=== PATIENT | male | born 1945 | race Caucasian/White ===

== ENCOUNTER → 2016-08-23 | Outpatient (CLI) | payer MEDICARE, OTHER ==
[~2016-08-23] MED LIST: ALEVE220 MG PO; LIPITOR20 M1 PO
[2016-08-23 11:20] LABS: ALBUMIN 4.2 gm/dL (3.5-5.0); ALK PHOS 90 IU/L (33-138); ALT 30 IU/L (12-78); ANION GAP 7.6 (10.0-19.0); AST 19 IU/L (10-40); BLOOD UREA NITROGEN 15 mg/dL (6-24); CALCIUM 8.7 mg/dL (8.5-10.5); CHLORIDE 106 mMol/L (96-110); CO2 32 mMol/L (22-32); ESTIMATED GFR (MDRD EQUATION) > 60; POTASSIUM 4.6 mMol/L (3.7-5.1); SODIUM 141 mMol/L (135-145); TOTAL BILIRUBIN 0.8 mg/dL (0.0-1.5); TOTAL PROTEIN 7.7 g/dL (6.0-8.4)
== END | disposition disaster alternative care site (69) ==
LOC: LNHI 11:03
PROVIDERS: Internal Medicine Interventional Cardiology
DX: E78.5 Hyperlipidemia, unspecified (principal); R07.9 Chest pain, unspecified

== ENCOUNTER → 2016-10-04 | Day surgery (SDC) | payer MEDICARE, OTHER ==
[~2016-10-04] VITALS: Ht 177.8 cm; Wt 64.4 kg
== END | disposition disaster alternative care site (69) ==
LOC: GPOC 09-28 11:00 → GEND 06:57 → GPOC 07:00
PROC: 0DB68ZX Excision of Stomach, Via Natural or Artificial Opening Endoscopic, Diagnostic (ICD-10-PCS; principal; 2016-10-04)
PROC: 0DBN8ZZ Excision of Sigmoid Colon, Via Natural or Artificial Opening Endoscopic (ICD-10-PCS; 2016-10-04)
PROC: 3E0H8GC Introduction of Other Therapeutic Substance into Lower GI, Via Natural or Artificial Opening Endoscopic (ICD-10-PCS; 2016-10-04)
DX: Z12.11 Encounter for screening for malignant neoplasm of colon (principal); C18.7 Malignant neoplasm of sigmoid colon; K29.70 Gastritis, unspecified, without bleeding; K57.30 Diverticulosis of large intestine without perforation or abscess without bleeding; E78.5 Hyperlipidemia, unspecified
CPT/HCPCS: J0171; J7030

== ENCOUNTER → 2016-10-07 | Outpatient (CLI) | payer MEDICARE, OTHER | END | disposition disaster alternative care site (69) | LOC: GLAB 13:33 | DX: C18.7 Malignant neoplasm of sigmoid colon (principal); R10.9 Unspecified abdominal pain; R63.0 Anorexia | CPT/HCPCS: Q9967 ==

== ENCOUNTER 2016-10-18 11:00 | Inpatient (IN) | payer MEDICARE, OTHER ==
[~2016-10-18] VITALS: Ht 177.8 cm; Wt 60.6 kg
--- NOTE | ~2016-10-18 | DS ---
PATIENT'S NAME: CHRISTIANO GARRISON [facility] AGE: 71 Y [address] ROOM: [place] [address] [place] [facility] [place]: 10/25/2016 Discharge Summary DISCHARGE DATE: 10/28/2016 FAMILY PHYSICIAN: Karolina Arzate MD ATTENDING PHYSICIAN: Matthew Enrique DISCHARGE DIAGNOSIS: Adenocarcinoma of the sigmoid colon. PROCEDURE PERFORMED: Laparoscopic sigmoid colon resection. HOSPITAL COURSE: Summary: Christiano Garrison is a 71-year-old gentleman who recently underwent a colonoscopy, where a large polyp was found in the sigmoid colon. This was removed and biopsy showed invasive adenocarcinoma. The area was tattooed and clips have been placed. A CT of the chest, abdomen, and pelvis showed no evidence of metastatic disease. The patient was seen by Dr. Enrique on 10/12/2016 for consultation and recommendations for a sigmoid colon resection were made. The risks, benefits, and alternatives were discussed. The patient underwent a mechanical and antibiotic bowel prep and was admitted to [facility] on 10/25/2016. The patient received preoperative antibiotics. The patient was taken to the operating room for a laparoscopic sigmoid colon resection. Please see Dr. Enrique's procedure note for specifics. Postoperatively, the patient was allowed activity as tolerated. Urine output was monitored closely. Ladd was placed to dependent drainage and removed the following morning. Pulmonary toiletry was encouraged. The patient was allowed sips of clear liquids. Lovenox was ordered for DVT prophylaxis. Ofirmev and Dilaudid were ordered for pain control. On postoperative day 1, the patient was doing very well. He had minimal pain. He had no nausea and no flatus. Vital signs were stable. Hemoglobin was 12.2. He was advanced to a clear liquid diet and allowed full liquids later in the day. His IV was heparin locked. On postoperative day 2, the patient was passing some gas. Vital signs remained stable. He continued on full liquids. Lovenox was held due to some bloody stools. On postoperative day 3, continued to do well but was bloated. He has had a bowel movement and some flatus. Diet was allowed as tolerated. Later in the day, the patient was feeling better with less bloating. He did not have a big appetite, but felt that he would do fine at home and requested to go home. DISCHARGE INSTRUCTIONS: Include: No restrictions on diet. No heavy lifting for 6 weeks. He will follow up with Dr. Enrique in 2 weeks. He is opted to use Tylenol or ibuprofen for pain as the [place] caused lightheadedness. Final pathology report is pending at this time. We will plan to review that in the clinic at his followup appointment. For specifics on day-to-day care, please refer to the hospital chart. PATIENT'S NAME: CHRISTIANO GARRISON [facility] AGE: 71 Y [address] ROOM: [place] [address] [place] [facility]: 10/25/2016 Discharge Summary DISCHARGE DATE: 10/28/2016 FAMILY PHYSICIAN: Karolina Arzate MD ATTENDING PHYSICIAN: Matthew Enrique RICHY RENNER PA-C FOR MD FELY AMADORK/marshal /[id number] d: 10/29/16 1417 t: 11/03/16 1125, DISCHARGE SUMMARY
--- NOTE | ~2016-10-18 | OR ---
PATIENT'S NAME: ELSI GARRISON [facility] AGE: 71 Y [address] ROOM: [address] [address] [place] [facility] [place]: 10[place]25[place] OR/Procedure Report DISCHARGE DATE: FAMILY PHYSICIAN: MILLY BROOKS MD ATTENDING PHYSICIAN: Matthew Enrique SURGEON: Matthew Enrique MD GOLF COURSE ARCHITECT: Jennifer Mckenna PA-C. DATE OF PROCEDURE: 10/25/2016 PREOPERATIVE DIAGNOSIS: Colonic adenocarcinoma. POSTOPERATIVE DIAGNOSIS: Colonic adenocarcinoma. PROCEDURE: Laparoscopic sigmoid. FINDINGS: The tattoo was relatively faint, but was identified within the sigmoid colon. There was scarring from his previous polypectomy site. ESTIMATED BLOOD LOSS: 50 mL. COMPLICATIONS: None. INDICATIONS: The patient is a 71-year-old male who had had a polyp removed, which revealed adenocarcinoma. We discussed with him resection versus observation. The risks, benefits, and alternatives of each and ultimately wished to proceed with surgery. DESCRIPTION OF PROCEDURE: The patient was taken into the operating room, placed supine, given IV sedation, subsequently intubated. His abdomen was prepped with ChloraPrep and sterilely draped. Local anesthetic was infiltrated just inferior to the umbilicus. A transverse incision was created. The abdomen was elevated. A Veress needle was inserted. Pneumoperitoneum was induced. Following this, a 5-mm trocar was inserted followed by insertion of the camera. There was no injury from initial trocar placement. Two more trocars were positioned, a 5 and a 12-mm right abdominal trocar ports, these were both inserted under direct visualization. The sigmoid colon was examined. Initially, we had some difficulty identifying the tattoo, however, we eventually were able to find, this area of tattoo was relatively faint, however. We examined the colon up to the hepatic flexure and we were unable to visualize any further tattoo. We elevated the mesentery in a medial to lateral plane, we divided the inferior mesenteric vessel at its base and continued dissection in a medial to lateral fashion. The ureter was able to be identified. We dissected then down towards the pelvis scoring the peritoneum. Sacral promontory was identified and dissected down to the sacral promontory. We then excised the line of Toldt in order to further mobilize PATIENT'S NAME: ELSI GARRISON [facility] AGE: 71 Y [address] ROOM: [address] [address] [place] [facility] [place]: 10/25/2016 OR/Procedure Report DISCHARGE DATE: FAMILY PHYSICIAN: MILLY BROOKS MD ATTENDING PHYSICIAN: Matthew Enrique the bowel and the bowel was mobilized from the descending colon down into the pelvis. The area of tattoo again was relatively faint, but no other further tattoo was able to be visualized. Once adequately mobilized, a laparoscopic stapler was placed across the rectum and fired, and a second staple load had to be used to complete this transection. Once this was removed, the pneumoperitoneum was released. A Pfannenstiel incision was created. The abdominal cavity was entered. A wound VAC was then placed. The sigmoid colon was then delivered up to the wound. The mesentery had been divided proximally. The specimen was delivered through. The proximal site of resection had been selected. A pursestring clamp was then placed followed by a [place]. The bowel was then divided and passed off the table. We examined this on the back table. Again, there was minimal polyp present, and the tattoo was quite light; however, there was significant scarring right near this area of tattoo, consistent with previous polypectomy. Once we examined the specimen on the back table, we felt we were able to proceed with anastomosis. The pursestring suture clamp was opened and a 29 EEA anvil was inserted into the descending colon. The pursestring suture was secured, this allowed to fall back into the abdominal cavity. The Yoseph wound protector was removed. The peritoneum was closed with 2-0 Vicryl suture and closure of the anterior rectus sheath fascia with 0 PDS suture. Following this, CO2 was reintroduced in the abdominal cavity. We were able to place the EEA stapler into the rectum and advanced this up to the rectum. The spike was brought out through the rectum and docked to the anvil, this was then closed, the stapler was fired, and the stapler removed. It was then leak tested, no air leak was present. Once the anastomosis had been leak tested, the operative field was inspected, it appeared hemostatic. It was irrigated, fluid was removed. The pneumoperitoneum was released. The trocars were removed. The fascia of the 12-mm trocar site was approximated with 0 Vicryl suture and skin closure of all the incisions with 4-0 Monocryl suture. Exparel was injected. Steri- Strips and sterile dressings were placed. The patient was extubated and sent to recovery in good condition. Jennifer Mckenna was necessary during the entire procedure for visualization, retraction, and hemostasis. MATTHEW MD TRACY BERG/modl /[id number] d: 10/25/162056 t: 11/03/16 1122, OPERATIVE SUMMARY
[2016-10-25 10:13] LABS: BASOPHIL # 0.1 K/uL (0.0-0.2); BASOPHIL % 1.8 %; EOSINOPHIL # 0.1 K/uL (0.0-0.5); EOSINOPHIL % 2.1 %; HEMATOCRIT 43.3 % (37.0-53.0); HEMOGLOBIN 14.3 g/dL (11.0-16.0); IMMATURE GRANULOCYTE % 0.2 %; LYMPHOCYTE # 1.7 K/uL (0.8-4.0); LYMPHOCYTE % 27.5 %; MCH 29.7 pg (27.0-34.0); MONOCYTE # 0.6 K/uL (0.0-1.0); MONOCYTE % 10.2 %; MPV 10.4 fl (9.4-12.4); NEUTROPHIL # (ANC) 3.6 K/uL (1.4-9.0); NEUTROPHIL % 58.2 %; NRBC % 0 /100WBC (0-0.00); PLATELET COUNT 243 K/uL (150-450); RBC 4.81 M/uL (3.50-5.50); RDW-CV 13.5 % (11.9-14.6); WBC 6.2 K/uL (4.0-11.0)
[2016-10-25 10:26] LABS: ALBUMIN 3.8 gm/dL (3.5-5.0); ALK PHOS 83 IU/L (33-138); ALT 28 IU/L (12-78); ANION GAP 12.6 (10.0-19.0); AST 29 IU/L (10-40); BLOOD UREA NITROGEN 17 mg/dL (6-24); CALCIUM 8.6 mg/dL (8.5-10.5); CHLORIDE 107 mMol/L (96-110); CO2 28 mMol/L (22-32); ESTIMATED GFR (MDRD EQUATION) > 60; POTASSIUM 4.6 mMol/L (3.7-5.1); SODIUM 143 mMol/L (135-145); TOTAL PROTEIN 7.2 g/dL (6.0-8.4)
[2016-10-25 10:27] LABS: TOTAL BILIRUBIN 1.1 mg/dL (0.0-1.5)
--- NOTE | 2016-10-25 16:25 | NUR ---
Significant Event: PT ARRIVAL FROM PACU AT 1600. LAP SIGMOID COLECTOMY FOR DR ANGLIN. 4 LAP SITES TO ABDOMEN, SMALL AMOUNT OF DRAINAGE NOTED- MARKED. ARAYA PATENT, ORDERS TO REMOVE TOMORROW AM. IVF RUNNING TO R FOREARM. ORDERS FOR SIPS OF CLEAR LIQUIDS. POST OP VITALS TO FINISH AT 2255. VSS, ON ROOM AIR. Follow up: ACTIVITY TOLERATED, SIPS OF CLEARS, PULL ARAYA IN AM, POST OP VITALS
--- NOTE | 2016-10-26 04:32 | NUR ---
Significant Event: Patient alert and oriened X4. Up with stand by assist. Walked in halls X3. Tolerating well. 4 stab sites to abdomen, with old drainage marked. Vitals stable and on room air. IV to R) forearm, IVF at 100ml/hr. IV tylenol scheduled. Garay to be taken out at 0600. Sips of clears. Denies pain/nausea. Hard of hearing. Cooperaive with cares. Telemetry on, no calls. Nicotine patch to L) arm- wants changed in AM, very nervous about not having chewing tobacco. Using IS often. Follow up: Ambulate
[2016-10-26 05:17] LABS: BASOPHIL % 0.3 %; EOSINOPHIL % 0.1 %; HEMATOCRIT 37.2 % (37.0-53.0); HEMOGLOBIN 12.2 g/dL (11.0-16.0); IMMATURE GRANULOCYTE # 0.1 K/uL (0.0-0.3); IMMATURE GRANULOCYTE % 0.6 %; LYMPHOCYTE # 1.6 K/uL (0.8-4.0); LYMPHOCYTE % 12.8 %; MCH 29.3 pg (27.0-34.0); MCHC 32.8 gm/dL (32.0-36.5); MCV 89.4 fl (83.0-98.0); MPV 10.2 fl (9.4-12.4); NEUTROPHIL # (ANC) 9.7 K/uL (1.4-9.0); NEUTROPHIL % 78.2 %; NRBC % 0 /100WBC (0-0.00); PLATELET COUNT 216 K/uL (150-450); RBC 4.16 M/uL (3.50-5.50); RDW-CV 13.4 % (11.9-14.6); WBC 12.4 K/uL (4.0-11.0)
[2016-10-26 05:31] LABS: ANION GAP 12.3 (10.0-19.0); BLOOD UREA NITROGEN 14 mg/dL (6-24); CALCIUM 8.2 mg/dL (8.5-10.5); CHLORIDE 107 mMol/L (96-110); CO2 26 mMol/L (22-32); CREATININE 0.9 mg/dL (0.6-1.3); ESTIMATED GFR (MDRD EQUATION) > 60; POTASSIUM 4.3 mMol/L (3.7-5.1); SODIUM 141 mMol/L (135-145)
--- NOTE | 2016-10-26 11:25 | NUR ---
Introduced self/role to patient and his Nikia, they live in [place]. Plan is home. Denied any DME needs or any other barriers. Added my name to his marker board, will continue to follow.
--- NOTE | 2016-10-26 17:34 | NUR ---
Significant Event: PT AO. VSS ON RA, AFEBRILE. IV SALINE LOCKED. UP AD STEVE IN ROOM AND HALLS. RATES PAIN TOLERABLE. PRN NORCO X2, LAST AT 1740. LAP SITES TO ABDOMEN X4, DRESSINGS INTACT. TOLERATING FULL LIQUID DIET. STATES HE HAS PASSED GAS, NO STOOL YET. Follow up: CONTINUE TO MONITOR
--- NOTE | 2016-10-26 18:22 | NUR ---
I HAVE REVIEWED AND AGREE WITH CHARTING BY [facility] STUDENT NICOLAS MARTINEZ RN
--- NOTE | 2016-10-27 03:55 | NUR ---
Significant Event: Sleeping for long periods tonight. Afebrile, all other VSS. Up in room and halls indepedently. Drinking and voiding adequate amounts. [place] (1 tab) given x2 last at 0317 for pain. Bowel sounds active to hyperactive x4 quadrants. States is passing flatus. Abdominal dressings x4 remain dry and intact. PIV to R) forearm patent and saline locked. Showered this shift. Pleasant and cooperative with all cares. Follow up:
--- NOTE | 2016-10-27 19:13 | NUR ---
Significant event: Has had 3 bloody liquid stools today first two were bright red and last one was dark red. Voiding good, had 850 ml of yellow urine out. taking full liquids well. Had [place] twice. Ambulating in [place] several times today.
--- NOTE | 2016-10-28 03:46 | NUR ---
Significant Event: Sleeping for long periods. [place] given x2 last at 0132 for c/o pain. Up in room and halls independently. Drinking and voiding adequate amounts. Patient reports 2 small, brown, loose stools (no blood noted). Abdominal incisions x4 approximated with steri-strips. PIV patent and saline locked. Possible home today. Follow up:
--- NOTE | 2016-10-28 17:46 | NUR ---
DISCHARGE: Pt. was educated on colon resection d/c instructions and tobaccco cessation. Verbalized understanding, no questions or concerns. Left with all belongings, no home medications or scripts. Wheeled to front door by aide and driven home by .
--- NOTE | 2016-11-04 14:21 | NUR ---
Post hospitalization follow up call made to patient. Patient reports he is doing well. States he is not doing any heavy lifting. Will see Dr. Enrique on November 11. Reports that nurses were wonderful during his hospitalization but he did not like the food.
== END 2016-10-28 16:42 | disposition disaster alternative care site (69) | DRG 331 ==
LOC: GMSU 10-25 08:47
PROVIDERS: Physician Assistant; ADMIT Surgery
PROC: 0DTN4ZZ Resection of Sigmoid Colon, Percutaneous Endoscopic Approach (ICD-10-PCS; principal; 2016-10-25)
DX: C18.7 Malignant neoplasm of sigmoid colon (principal); I25.2 Old myocardial infarction; Z88.0 Allergy status to penicillin
CPT/HCPCS: C9290; J0131; J1100; J1335; J1650; J2405; J7030; J7120

== ENCOUNTER → 2016-12-12 | Outpatient (CLI) | payer MEDICARE, OTHER ==
[2016-12-12 10:54] LABS: ALBUMIN 3.7 gm/dL (3.5-5.0); ALK PHOS 88 IU/L (33-138); ALT 33 IU/L (12-78); ANION GAP 8.7 (10.0-19.0); AST 30 IU/L (10-40); BLOOD UREA NITROGEN 17 mg/dL (6-24); CALCIUM 8.6 mg/dL (8.5-10.5); CHLORIDE 105 mMol/L (96-110); CO2 30 mMol/L (22-32); CREATININE 0.9 mg/dL (0.6-1.3); ESTIMATED GFR (MDRD EQUATION) > 60; POTASSIUM 4.7 mMol/L (3.7-5.1); SODIUM 139 mMol/L (135-145); TOTAL PROTEIN 7.3 g/dL (6.0-8.4)
[2016-12-12 10:56] LABS: TOTAL BILIRUBIN 0.8 mg/dL (0.0-1.5)
== END ==
LOC: LNHI 10:30
PROVIDERS: Internal Medicine Interventional Cardiology
DX: E78.00 Pure hypercholesterolemia, unspecified (principal); R07.9 Chest pain, unspecified; R42 Dizziness and giddiness